=== PATIENT | female | born 1985 | race Caucasian/White ===

== ENCOUNTER 2020-05-27 06:25 | Day surgery (SDC) | payer BC ==
[~2020-05-27 06:25] MED LIST: NORETHINDRONE0.35 MG PO
[2020-05-28] MEDS ORDERED: STOOL SOFTENER250 MG PO (10:58)
[2020-05-28] MEDS ORDERED: HYDROCODON-ACE1 EAC4 PO (10:59)
[2020-05-28] MEDS ORDERED: IBUPROFEN800 MG PO (11:00)
[2020-05-28] MEDS ORDERED: ZOFRAN4 MG PO (11:00)
== END 2020-05-28 11:37 | disposition home or self-care (01) ==
LOC: OR 06:25 → OB 11:01 → OR 11:30
PROVIDERS: Obstetrics & Gynecology
PROC: 0UT74ZZ Resection of Bilateral Fallopian Tubes, Percutaneous Endoscopic Approach (ICD-10-PCS; 2020-05-27)
PROC: 0UT94ZZ Resection of Uterus, Percutaneous Endoscopic Approach (ICD-10-PCS; principal; 2020-05-27 08:30)
DX: N72 Inflammatory disease of cervix uteri (principal); N83.8 Other noninflammatory disorders of ovary, fallopian tube and broad ligament; N93.9 Abnormal uterine and vaginal bleeding, unspecified; N94.6 Dysmenorrhea, unspecified; F41.9 Anxiety disorder, unspecified; Z79.82 Long term (current) use of aspirin
CPT/HCPCS: 84703; C1769; J0690; J1100; J1885; J2250; J2405; J2704; J3010; J7120